=== PATIENT | male | born 1955 | race Caucasian/White ===

== ENCOUNTER 2018-05-23 17:54 | Inpatient (IN) | payer MEDICAID ==
[2018-05-23] MEDS ORDERED: Ondansetron PF 4 MG/2 ML Vial ONE (18:31)
[2018-05-23 18:33] LABS: #Basophils 0.1 thou/uL (0.0-0.2); #Eosinphils 0.1 thou/uL (0.0-0.7); #Lymphocytes 1.7 thou/uL (1.20-3.40); #Neutrophils 10.8 thou/uL (1.40-6.50); %Basophils 0.5 % (0.0-1.0); %Eosinophils 0.9 % (0.0-10.0); %Lymphocytes 12.6 % (21.0-51.0); %Monocytes 7.1 % (0.0-10.0); %Neutrophils 78.9 % (42.0-75.0); Hemoglobin 8.9 g/dL (14.0-18.0); Mean Corpuscular HGB CONC 30.7 g/dL (32.0-36.0); Mean Corpuscular Hemoglobin 24.5 pg (27.0-31.0); Mean Platelet Volume 6.2 fL (7.4-10.4); Platelet Count 827 thou/uL (130-400); RBC Distribution Width 14.9 % (11.5-14.5); Red Blood Cell (RBC) Count 3.64 mill/uL (4.70-6.10); White Blood Cell (WBC) Count 13.7 thou/uL (4.8-10.8)
[2018-05-23] MEDS ORDERED: Morphine 10 MG/ML VIAL ONE (18:41)
[2018-05-23 18:53] LABS: ALT (SGPT) Less than 7 U/L (8-55); AST (SGOT) 16 U/L (5-34); Alkaline Phosphatase 114 U/L (40-150); Anion Gap 10 mmol/L (10-20); BUN (Urea Nitrogen) 15 mg/dL (8.4-25.7); Bilirubin, Total Less than 0.2 mg/dL (0.2-1.2); Calc. Creatinine Clearance 0 mL/min (70-130); Calcium 8.6 mg/dL (7.8-10.44); Carbon Dioxide 31 mmol/L (23-31); Chloride 101 mmol/L (98-107); Estimated GFR-MDRD Greater than 90; Globulin 3.6 g/dL (2.4-3.5); Glucose 107 mg/dL (80-115); Potassium 3.8 mmol/L (3.5-5.1); Protein, Total 6.6 g/dL (5.8-8.1); Sodium 138 mmol/L (136-145)
--- NOTE | 2018-05-23 19:37 | RAD ---
CHEST TWO VIEWS: History: Chest pain, dyspnea. FINDINGS: No comparison. Cardiac silhouette and pulmonary vasculature are unremarkable. Opacification of the left lower lobe w ith hyperexpansion of the left upper lobe. No air bronchograms are apparent. Right lung is well infla lj. No evidence of pneumothorax. IMPRESSION: Opacification of the left inferior hemithorax has the appearance of atelectasis of the left lower lob e. POS: [facility]
--- NOTE | 2018-05-23 20:09 | PDOC.FPRHP ---
- History of Present Illness Chief Complaint: Pain History of Present Illness: Mr. Padilla is a 62 yo M with known metastatic lung cancer (liver mets per patient) who presents for worsening back pain. His pain is primarily on his L side and feels like a knife is stabbing him. He is on oxycodone and norco - taking norco 3-4 times a day which sometimes helps. Sometimes it feels like a fake medication. He is very functional when his pain is controlled. Breathing treatments and pain control help him the most. He is now living at the [facility] here in town. He states they did a biopsy and scans all over his body for his diagnosis. He does not believe chemo and radiation will help him. The diagnosis was made in January. He was told he could get chemotherapy but he cannot decide because of the pain he is in. His brother lives in [place], Ro[place] Padilla, and would be his surrogate decision maker. Master Ocean Dilip Griggs MD ( Radiation Oncology) at [facility] [phone]. Smokes 3 cigarettes/ day. Endorses some constipation because of pain medications. ED Course: Morphine 4mg, Morphine 2mg, 1L NS, Zofran - Allergies/Adverse Reactions Allergies Allergy/AdvReac Type Severity Reaction Status Date / Time No Known Allergies Allergy Verified 05/23/18 22:17 - Home Medications Medication Instructions Recorded Confirmed Type Oxycodone HCl/Acetaminophen 1 - 2 tablet PO Q6HR PRN 05/23/18 05/23/18 History [oxyCODONE HCl/Acetaminophen] - History PMHx: Metastatic lung cancer PSHx: L 4th finger repair after injury FHx: Dad- heart disease Social: 3 cigarettes/day, prior to that 1 ppd. Quit drinking 10 years ago. Remote hx cocaine, marijuana. after 17 years. 2 girls, 1 boy. - Review of Systems General: reports: weight/appetite/sleep changes (45 lb weight loss since January ). denies: fever/chills Eyes: denies: eye pain, vision changes ENT: denies: nasal congestion, rhinorrhea Respiratory: denies: cough, congestion Cardiovascular: denies: chest pain, palpitation Gastrointestinal: denies: nausea, vomiting Genitourinary: reports: other (denies hematuria). denies: dysuria Skin: denies: rashes, lesions Musculoskeletal: reports: pain, arthritis/arthralgias Neurological: denies: syncope, weakness Psychological: reports: depression (lonelines, sadness, hopelessness because of pain) - Vital signs BP: 145/68 HR: 94 RR: 26 Tmax: 98.1 Pox: 97% on RA Wt: 58.97kg - Physical Exam Constitutional: NAD, awake, alert and oriented, other (cachectic) HEENT: normocephalic and atraumatic, conjunctiva clear, grossly normal hearing, MMM, oropharynx clear Neck: supple, trachea midline Heart: RRR Lungs: CTAB, no wheezing -Lungs: decreased breath sounds in left lower lobe Abdomen: soft, non-tender, bowel sounds present Musculoskeletal: normal structure, ROM grossly normal Neurological: no focal deficit Skin: no rash/lesions, capillary refill <2 seconds Psychiatric: good judgment and insight, intact recent and remote memory, other ( tearful) FMR H&P: Results - Labs Result Diagrams: 05/23/18 18:17 05/24/18 05:52 Lab results: WBC 13.7 thou/uL (4.8-10.8) H 05/23/18 18:17 Hgb 8.9 g/dL (14.0-18.0) L 05/23/18 18:17 Hct 29.1 % (42.0-52.0) L 05/23/18 18:17 MCV 80.0 fL (78.0-98.0) 05/23/18 18:17 Plt Count 827 thou/uL (130-400) H 05/23/18 18:17 Neutrophils % 78.9 % (42.0-75.0) H 05/23/18 18:17 Sodium 138 mmol/L (136-145) 05/23/18 18:17 Potassium 3.8 mmol/L (3.5-5.1) 05/23/18 18:17 Chloride 101 mmol/L (98-107) 05/23/18 18:17 Carbon Dioxide 31 mmol/L (23-31) 05/23/18 18:17 BUN 15 mg/dL (8.4-25.7) 05/23/18 18:17 Creatinine 0.64 mg/dL (0.7-1.3) L 05/23/18 18:17 Glucose 107 mg/dL (80-115) 05/23/18 18:17 Calcium 8.6 mg/dL (7.8-10.44) 05/23/18 18:17 Total Bilirubin Less than 0.2 mg/dL (0.2-1.2) L 05/23/18 18:17 AST 16 U/L (5-34) 05/23/18 18:17 ALT Less than 7 U/L (8-55) L 05/23/18 18:17 Alkaline Phosphatase 114 U/L (40-150) 05/23/18 18:17 Serum Total Protein 6.6 g/dL (5.8-8.1) 05/23/18 18:17 Albumin 3.0 g/dL (3.4-4.8) L 05/23/18 18:17 - Radiology Interpretation Chest x-ray Status: report reviewed by me Additional comment: Opacification of left inferior hemithorax has appearance of atelectasis of left lower lobe FMR H&P: A/P - Problem List (1) Intractable pain Current Visit: Yes Status: Acute Code(s): R52 - PAIN, UNSPECIFIED (2) Metastatic lung cancer (metastasis from lung to other site) Current Visit: Yes Status: Acute Code(s): C34.90 - MALIGNANT NEOPLASM OF UNSP PART OF UNSP BRONCHUS OR LUNG - Plan 62yo male with pmh of lung cancer admitted for intractable pain Intractable Pain - 2/2 lung cancer, ran out of home [place] - Given Morphine in ED will minimal relief - Started Percocet with Morphine for breakthrough pain - Started Senna and Colace for Bowel regimen - Consulted Palliative care Metastatic Lung Cancer - Requesting records from prev providers - Consulted Palliative care Homeless - Consulted Tobacco Abuse - Smokes 3 cig per day Code Status: FULL DVT ppx: Lovenox FMR H&P: Upper Level - Pertinent history 62 yo M with known metastatic lung cancer her with pain that acutely worsened after he ran out of home Percoset this morning. He has been having trouble consistently getting medications after leaving homeless halfway in [place] and moving here where he is staying at the [facility]. He has been having excruciating pain on his L side/flank of which he gets limited relief from [place]. He is very tearful when asked about his pain/prognosis and experience with physicians at other facilities. - Pertinent findings VSS Gen: awake, alert, tearful, cachectic HEENT: atraumatic, normocephalic CV: RRR, no murmur RESP: diminished air entry at BL bases ABD: soft, nontender, nondistended SKIN: tattoos on back EXT: clubbing in all nails NEURO: moving all extremities, no facial droop - Plan Date/Time: 05/23/182007 62 yo M with intractable pain 2/2 known metastatic lung malignancy 1. Intractable pain 2/2 malignancy - Inadequate pain control with morphine in ED - Start long acting Percocet and morphine for breakthrough - Palliative consult in a.m. - Patient at this time is not interested in chemo and wants to live life out in peace, however, may consider consulting oncology if he plans to stay here and wants to explore possible treatment options - Bowel regimen 2. Lung CA - Palliative +/- oncology as above I, Megan Flores MD, PGY-3, have evaluated this patient and agree with findings/ plan as outlined by chemist internship resident. Pertinent changes/additions are listed here. Addendum - Attending - Attending Attestation Date/Time: 05/24/18 0644 I personally evaluated the patient and discussed the management with Dr. Andrew I agree with the History, Examination, Assessment and Plan documented above with any addition or exceptions noted below. Assume This patient with Small Cell Lung Cancer based on aggressive history of disease and liver metastasis need record review patient poor historian questionable PET scan etc. Patient concern will pain control recommend palliative care.
[2018-05-23] MEDS ORDERED: Morphine 4 MG/ML VIAL ONE (20:15)
[2018-05-23] MEDS ORDERED: Morphine 4 MG/ML VIAL SLOW IVP PRN ×2 (22:08→22:09)
[2018-05-23 22:18] VITALS: BMI 18.1
[2018-05-23] MEDS ORDERED: Ketorolac Tromethamine 30 MG/ML VIAL IVP SCH (23:15)
--- NOTE | 2018-05-23 23:55 | PDOC.EVN ---
Event Note - Event Note Event Note: 62 yo male diagnosed with "metastatic Lung cancer" in [place], [place] Jan 2018 patient with admission for intractable pain. Patient living at the [facility]. Patient will be considered for Palliative/Hospice care after formal review Past Medical records for further information of type/stage lung cancer CXR with atelectasis LLL. Patient relates work up with imaging brain and abdomen. Pain to left lower rib cage and flank. Patient poor historian not able to give any specific details but has provided Oncologist name Dr Dilip Griggs in [place]. will offer pain management and bowel maintanence with opiods. Review [employer] reveal several ER visit for norco short term RX and longer RX per Oncologist in [place]
[2018-05-24] MEDS ORDERED: Ondansetron ODT 4 MG TAB PO PRN (00:51)
[2018-05-24] MEDS ORDERED: Morphine 4 MG/ML VIAL SLOW IVP PRN ×4 (01:10→11:11)
[2018-05-24] MEDS: oxyCODONE/Acetaminophen 5 mg/325 mg Tablet PO SCH ×4 (01:49→18:23)
--- NOTE | 2018-05-24 05:45 | PDOC.FM ---
- Subjective Subjective: NAEO. Patient reports that his pain is much better at a 3/10 this morning. Says he feels it in his right side. Says he just did not sleep well last night. Denies any N/V or SOB, except when he talks a lot. Denies any BM yet. - Objective MAR Reviewed: Yes Vital Signs & Weight: Vital Signs (12 hours) Temp Pulse Resp BP Pulse Ox 05/24/18 03:42 98.2 F 85 16 148/74 H 95 05/23/18 23:15 98.3 F 82 24 H 160/76 H 95 05/23/18 21:57 97.6 F 91 28 H 170/80 H 97 Weight Weight 63.911 kg Result Diagrams: 05/23/18 18:17 05/24/18 05:52 Phys Exam - Physical Examination Constitutional: NAD HEENT: moist MMs Neck: supple, full ROM Respiratory: no wheezing, no rales, no rhonchi, clear to auscultation bilateral Cardiovascular: RRR, no significant murmur Gastrointestinal: positive bowel sounds Musculoskeletal: no edema significant digital clubbing in B/L hands Neurological: non-focal, moves all 4 limbs Psychiatric: normal affect, A&O x 3 Skin: no rash, normal turgor, cap refill <2 seconds Dx/Plan (1) Intractable pain Code(s): R52 - PAIN, UNSPECIFIED Status: Acute (2) Metastatic lung cancer (metastasis from lung to other site) Code(s): C34.90 - MALIGNANT NEOPLASM OF UNSP PART OF UNSP BRONCHUS OR LUNG Status: Acute - Plan Plan: 62YOM with pmh of metastatic lung cancer admitted for intractable pain 2/2 to his cancer. Intractable Pain - 2/2 lung cancer, ran out of home [place] - Given Morphine in ED with minimal relief - Will continue Percocet GM Q8H with Morphine 4mg IV Q4H & 2mg Q2H PRN for breakthrough pain - Will continue Senna and Colace for Bowel regimen - Consulted Palliative care Metastatic Lung Cancer - Requesting records from prev providers - Consulted Palliative care as patient is full code but does not desire any CA treatment as he does not want to suffer for the remainder of his life. Homeless - Aware, consulted CM Tobacco Abuse - Smokes 3 cig per day - Will encourage cessation Code Status: FULL DVT ppx: Lovenox Addendum - Attending - Attending Attestation Date/Time: 05/24/18 6709 I personally evaluated the patient and discussed the management with Dr. Gonzalez I agree with the History, Examination, Assessment and Plan documented above with any addition or exceptions noted below- Ptainet states that pain better controlled with percocet; still needed some prn morphine. Afebrile VSS. A/P: 1) Metastatic lung cancer with pain crisis - continue current meds. May need to increase dose of percocet or change to long acting opioid. Awaiting records from [facility]. Palliative consult obtained and helping to arrange hospice care. Discussed code status and patient desires no intervention in the event of a code situation. Status changed per patient request.
[2018-05-24 06:37] LABS: Anion Gap 14 mmol/L (10-20); BUN (Urea Nitrogen) 11 mg/dL (8.4-25.7); Calc. Creatinine Clearance 113 mL/min (70-130); Calcium 8.5 mg/dL (7.8-10.44); Carbon Dioxide 28 mmol/L (23-31); Chloride 102 mmol/L (98-107); Estimated GFR-MDRD Greater than 90; Glucose 84 mg/dL (80-115); Potassium 4.6 mmol/L (3.5-5.1); Sodium 139 mmol/L (136-145)
[2018-05-24] MEDS: Docusate 100 MG CAP PO SCH ×2 (08:35→08:45)
[2018-05-24] MEDS: Senokot S 8.6-50 MG TAB PO SCH ×2 (08:35→20:37)
[2018-05-24] MEDS: Enoxaparin Sodium 40 MG/0.4 ML SYRINGE SC SCH (08:36)
[2018-05-24] MEDS ORDERED: Morphine 4 MG/ML VIAL SLOW IVP SCH (12:00)
[2018-05-24] MEDS ORDERED: HYDROcodone/Acetaminophen 5/325 mg Tablet PO PRN (16:12)
[2018-05-24] MEDS ORDERED: Ibuprofen 800 MG TAB PO PRN (16:13)
[2018-05-24] MEDS: Ketorolac Tromethamine 30 MG/ML VIAL IVP PRN (22:45)
[2018-05-24] MEDS ORDERED: Ketorolac Tromethamine 30 MG/ML VIAL IVP SCH (23:59)
[2018-05-25] MEDS: oxyCODONE/Acetaminophen 5 mg/325 mg Tablet PO SCH ×2 (00:09→05:46)
--- NOTE | 2018-05-25 06:01 | PDOC.FM ---
- Subjective Subjective: Patient required adjustments in his pain regimen overnight. Reports that his pain is 10/10 this am. Says his pain is preventing him from taking deep breaths. Denies any fever/chills, N/V, or diarrhea. He does endorse constipation & abdominal tightness. - Objective MAR Reviewed: Yes Vital Signs & Weight: Vital Signs (12 hours) Temp Pulse Resp BP BP Pulse Ox 05/25/18 04:12 98.9 F 82 16 160/75 H 96 05/24/18 19:00 98.9 F 86 16 147/66 H 91 L Weight Admit Weight 63.911 kg Weight 63.911 kg I&O: 05/23/18 05/24/18 05/25/18 06:59 06:59 06:59 Intake Total 700 840 Balance 700 840 Result Diagrams: 05/23/18 18:17 05/24/18 05:52 Phys Exam - Physical Examination distress 2/2 pain HEENT: moist MMs Neck: supple, full ROM Respiratory: no wheezing, no rales, no rhonchi, clear to auscultation bilateral Cardiovascular: RRR, no significant murmur Gastrointestinal: no distention, positive bowel sounds Neurological: non-focal, moves all 4 limbs Psychiatric: normal affect, A&O x 3 Skin: no rash, normal turgor Dx/Plan (1) Intractable pain Code(s): R52 - PAIN, UNSPECIFIED Status: Acute (2) Metastatic lung cancer (metastasis from lung to other site) Code(s): C34.90 - MALIGNANT NEOPLASM OF UNSP PART OF UNSP BRONCHUS OR LUNG Status: Acute - Plan Plan: 62YOM with pmh of metastatic lung cancer admitted for intractable pain 2/2 to his cancer. Intractable Pain - 2/2 metastatic lung cancer. - Will consider switching to a longer acting narcotic such as MS contin today as short-acting meds are not adequately controlling his pain. - Will continue Senokot S and add miralax for bowel regimen. - Palliative care on board. Metastatic Lung Cancer - Requesting records from prev providers. - Consulted Palliative care and patient is now DNAR. OOH DNR signed yesterday with Hospice. - Patient has been approved for Hospice care in the [facility] and referrals were placed by CM yesterday for NH's in that area. Placement pending. HTN - Patient not on any antihypertensives at home. Will consider initiating an antihypertensive if BP remain consistently elevated. May just be elevated 2/2 pain. Homeless - Aware, consulted CM. Patient is pending placement. Tobacco Abuse - Smokes 3 cig per day. - Will encourage cessation. Code Status: DNAR DVT ppx: Lovenox GI PPx: pantoprazole Addendum - Attending - Attending Attestation Date/Time: 05/25/18 9216 I personally evaluated the patient and discussed the management with Dr. Gonzalez I agree with the History, Examination, Assessment and Plan documented above with any addition or exceptions noted below- Patient c/o pain. Has good relief with percocet but does not last long enough. Afebrile VSS A/P: 1) Lung cancer metastatic- still awaiting records from [facility]; will change to long acting opiate with meds for breakthrough. Awaiting NH placement with hospice.
[2018-05-25] MEDS: Senokot S 8.6-50 MG TAB PO SCH ×2 (08:02→20:33)
[2018-05-25] MEDS: Ketorolac Tromethamine 30 MG/ML VIAL IVP PRN (08:03)
[2018-05-25] MEDS: Enoxaparin Sodium 40 MG/0.4 ML SYRINGE SC SCH (08:04)
[2018-05-25] MEDS ORDERED: Ibuprofen 800 MG TAB PO SCH (08:30)
[2018-05-25] MEDS: Polyethylene Glycol 3350 17 GM Packet PO SCH (09:39)
[2018-05-25] MEDS: Nicotine 14 MG PATCH TD SCH (12:14)
[2018-05-25] MEDS ORDERED: oxyCODONE ER 20 MG TAB PO SCH ×2 (12:15→21:00)
[2018-05-25] MEDS: oxyCODONE/Acetaminophen 5 mg/325 mg Tablet PO PRN ×2 (13:52→22:54)
[2018-05-25] MEDS: Gabapentin 300 MG CAP PO SCH ×2 (13:52→20:34)
[2018-05-25] MEDS ORDERED: Ketorolac Tromethamine 30 MG/ML VIAL IVP PRN (15:00)
[2018-05-25] MEDS: oxyCODONE ER 20 MG TAB PO SCH (20:33)
[2018-05-25] MEDS: Melatonin 3 MG TAB PO PRN (20:35)
[2018-05-25] MEDS ORDERED: Morphine ER 30 MG TAB PO SCH (21:00)
[2018-05-26] MEDS: oxyCODONE/Acetaminophen 5 mg/325 mg Tablet PO PRN ×4 (05:03→22:30)
--- NOTE | 2018-05-26 05:54 | PDOC.FM ---
- Subjective Subjective: NAEO. Patient reports that his pain is much better this AM. Says it is much improved after starting the longer acting opioid yesterday but did have increased pain overnight. Denies any chest pain, N/V, or diarrhea. Says he has not yet had a BM. Endorses some SOB as well or says he is not able to take really deep breaths 2/2 pain. - Objective MAR Reviewed: Yes Vital Signs & Weight: Vital Signs (12 hours) Temp Pulse Resp BP BP Pulse Ox 05/26/18 04:00 98.4 F 90 18 124/59 L 93 L 05/25/18 23:54 98.8 F 107 H 22 H 124/58 L 92 L 05/25/18 20:08 98.0 F 84 24 H 143/69 H 91 L 05/25/18 18:15 97.5 F L 86 14 138/71 90 L Weight Admit Weight 63.911 kg Weight 63.911 kg I&O: 05/24/18 05/25/18 05/26/18 06:59 06:59 06:59 Intake Total 700 1190 1560 Balance 700 1190 1560 Result Diagrams: 05/23/18 18:17 05/24/18 05:52 Phys Exam - Physical Examination Constitutional: NAD HEENT: moist MMs, sclera anicteric Neck: supple, full ROM Respiratory: no wheezing, no rales, no rhonchi, clear to auscultation bilateral poor air movement throughout Cardiovascular: RRR, no significant murmur Gastrointestinal: no distention, positive bowel sounds Neurological: non-focal, moves all 4 limbs Psychiatric: normal affect, A&O x 3 Skin: no rash, normal turgor Dx/Plan (1) Intractable pain Code(s): R52 - PAIN, UNSPECIFIED Status: Acute (2) Metastatic lung cancer (metastasis from lung to other site) Code(s): C34.90 - MALIGNANT NEOPLASM OF UNSP PART OF UNSP BRONCHUS OR LUNG Status: Acute (3) Tobacco abuse Code(s): Z72.0 - TOBACCO USE Status: Acute - Plan Plan: 62YOM with a pmh of metastatic lung cancer admitted for intractable pain 2/2 to his cancer. Intractable Pain - 2/2 metastatic lung cancer. - Will consider increasing Oxycontin dosing by ~10mg today since patient required 3 doses of percocet for breakthrough pain since starting the 20 BID dose of oxycontin yesterday. Will continue the GM gabapentin and PRN ibuprofen as well for pain control. Will continue Percocet PRN as well while continuing to adjust oxycontin dose for adequate pain control. - Will continue Senokot S and try a dose of lactulose this morning to induce a BM. If BM with lactulose with resume miralax and senokot combo tomorrow. - Palliative care on board. Metastatic Lung Cancer - Requesting records from prev providers. - Consulted Palliative care and patient is now DNAR. OOH DNR signed with Hospice. - Patient has been approved for Hospice care in the [facility] and has been medically accepted by [facility]. Just pending financial approval now. HTN - Patient not on any antihypertensives at home. BP improved since starting longer acting opioid for pain control. Will continue to monitor. Homeless - Aware, consulted CM. Patient is pending placement. Tobacco Abuse - Smokes 3 cig per day. - Will encourage cessation. - Nicotine patch ordered per patient's request. Code Status: DNAR DVT ppx: Lovenox GI PPx: pantoprazole Addendum - Attending - Attending Attestation Date/Time: 05/27/18 3304 I personally evaluated the patient and discussed the management with Dr. Gonzalez on 05/26/2018 I agree with the History, Examination, Assessment and Plan documented above with any addition or exceptions noted below - Patient complaining of pain but better than yesterday. Has been walking in halls some. Afebrile VSS. A/P: 1) Metastatic lung cancer- pain meds adjusted. May increase Oxycontin tomorrow depending on prn use through today. Awaiting placment in NH with hospice.
[2018-05-26] MEDS: Senokot S 8.6-50 MG TAB PO SCH ×2 (09:08→20:29)
[2018-05-26] MEDS: Gabapentin 300 MG CAP PO SCH ×3 (09:08→20:29)
[2018-05-26] MEDS: Enoxaparin Sodium 40 MG/0.4 ML SYRINGE SC SCH (09:09)
[2018-05-26] MEDS: oxyCODONE ER 20 MG TAB PO SCH ×2 (09:09→20:30)
[2018-05-26] MEDS: Nicotine 14 MG PATCH TD SCH (12:17)
[2018-05-26] MEDS: Ibuprofen 800 MG TAB PO PRN (14:18)
[2018-05-26] MEDS ORDERED: Bisacodyl 10 MG SUPP PR PRN (18:51)
[2018-05-27] MEDS: oxyCODONE/Acetaminophen 5 mg/325 mg Tablet PO PRN ×4 (02:33→19:36)
--- NOTE | 2018-05-27 05:54 | PDOC.FM ---
- Subjective Subjective: Patient states he feels much better this AM. Endorses persistent SOB and constipation. Denies any fever/chills, N/V, or cough/wheezing. - Objective MAR Reviewed: Yes Vital Signs & Weight: Vital Signs (12 hours) Temp Pulse Resp BP Pulse Ox 05/26/18 19:23 97.9 F 86 20 119/63 93 L Weight Admit Weight 63.911 kg Weight 63.911 kg I&O: 05/25/18 05/26/18 05/27/18 06:59 06:59 06:59 Intake Total 1190 1560 1720 Balance 1190 1560 1720 Result Diagrams: 05/23/18 18:17 05/24/18 05:52 Phys Exam - Physical Examination Constitutional: NAD HEENT: moist MMs, sclera anicteric Neck: supple, full ROM Respiratory: no rales, no rhonchi Cardiovascular: RRR, no significant murmur Gastrointestinal: no distention, positive bowel sounds Neurological: non-focal, moves all 4 limbs Psychiatric: normal affect, A&O x 3 Skin: no rash, normal turgor Dx/Plan (1) Intractable pain Code(s): R52 - PAIN, UNSPECIFIED Status: Acute (2) Metastatic lung cancer (metastasis from lung to other site) Code(s): C34.90 - MALIGNANT NEOPLASM OF UNSP PART OF UNSP BRONCHUS OR LUNG Status: Acute (3) Tobacco abuse Code(s): Z72.0 - TOBACCO USE Status: Acute - Plan Plan: 62YOM with a pmh of metastatic lung cancer admitted for intractable pain 2/2 to his cancer. Intractable Pain - 2/2 metastatic lung cancer. - Will increase Oxycontin dosing by ~10mg today since patient again required multiple doses of percocet for breakthrough pain over the last 24 hours. Will continue the GM gabapentin and PRN ibuprofen as well for pain control. Will continue Percocet PRN Q4H for breakthrough pain. - Palliative care on board. Metastatic Lung Cancer - Requesting records from prev providers. - Consulted Palliative care and patient is now DNAR. OOH DNR signed with Hospice. - Patient has been approved for Hospice care in the [facility] and has been medically accepted by [facility]. Just pending financial approval now. Constipation - Will continue Senokot S and miralax and give another dose of lactulose this morning to induce a BM. Will also add a OK medication. HTN - Patient not on any antihypertensives at home. BP improved since starting longer acting opioid for pain control. Will continue to monitor. Homeless - Aware, consulted CM. Patient is pending placement. Tobacco Abuse - Smokes 3 cig per day. - Will encourage cessation. - Nicotine patch ordered per patient's request. Code Status: DNAR DVT ppx: Lovenox GI PPx: pantoprazole Addendum - Attending - Attending Attestation Date/Time: 05/27/18 1022 I personally evaluated the patient and discussed the management with Dr. Gonzalez I agree with the History, Examination, Assessment and Plan documented above with any addition or exceptions noted below- Patient reports pain under better control. Afebrile VSS. A/P: 1) Metastatic lung cancer - will increase oxycontin to 30 mg q12 hours based on prn needed medication. Arranging NH placement.
[2018-05-27] MEDS: oxyCODONE ER 20 MG TAB PO SCH ×2 (06:07→18:17)
[2018-05-27] MEDS ORDERED: Bisacodyl 10 MG SUPP PR SCH (07:45)
[2018-05-27] MEDS: Senokot S 8.6-50 MG TAB PO SCH ×2 (09:11→19:38)
[2018-05-27] MEDS: Enoxaparin Sodium 40 MG/0.4 ML SYRINGE SC SCH (09:12)
[2018-05-27] MEDS: Gabapentin 300 MG CAP PO SCH ×3 (09:12→19:37)
[2018-05-27] MEDS: Polyethylene Glycol 3350 17 GM Packet PO SCH (09:14)
[2018-05-27] MEDS: Nicotine 14 MG PATCH TD SCH (11:55)
[2018-05-28] MEDS: oxyCODONE/Acetaminophen 5 mg/325 mg Tablet PO PRN ×5 (01:02→21:31)
[2018-05-28] MEDS: oxyCODONE ER 20 MG TAB PO SCH ×2 (05:11→17:52)
--- NOTE | 2018-05-28 05:58 | PDOC.FM ---
- Subjective Subjective: NAEO. Patient reports 30/10 pain on exam. Had 1 bowel movement yesterday. Denies any fever/chills, cough, or chest pain, just persistent L-sided abdominal pain. - Objective MAR Reviewed: Yes Vital Signs & Weight: Vital Signs (12 hours) Temp Pulse Resp BP BP Pulse Ox 05/28/18 04:12 99.0 F 109 H 18 122/57 L 96 05/28/18 00:50 94 L 05/28/18 00:48 85 20 94 L 05/28/18 00:42 99.2 F 110 H 18 111/55 L 93 L 05/27/18 20:00 92 L 05/27/18 19:23 98.6 F 102 H 20 125/62 92 L 05/27/18 19:10 95 16 96 Weight Admit Weight 63.911 kg Weight 63.911 kg I&O: 05/26/18 05/27/18 05/28/18 06:59 06:59 06:59 Intake Total 1560 1720 660 Balance 1560 1720 660 Result Diagrams: 05/23/18 18:17 05/24/18 05:52 Phys Exam - Physical Examination Constitutional: NAD HEENT: moist MMs, sclera anicteric Neck: supple, full ROM Respiratory: no wheezing, no rales, no rhonchi, clear to auscultation bilateral Cardiovascular: RRR, no significant murmur Gastrointestinal: no distention, positive bowel sounds abdomen is non-tender to palpation in left upper & lower quadrants despite patient reporting TTP in this side; TTP in right side on exam Musculoskeletal: no edema Neurological: non-focal, moves all 4 limbs Psychiatric: normal affect, A&O x 3 Skin: no rash, normal turgor Dx/Plan (1) Intractable pain Code(s): R52 - PAIN, UNSPECIFIED Status: Acute (2) Metastatic lung cancer (metastasis from lung to other site) Code(s): C34.90 - MALIGNANT NEOPLASM OF UNSP PART OF UNSP BRONCHUS OR LUNG Status: Acute (3) Tobacco abuse Code(s): Z72.0 - TOBACCO USE Status: Acute - Plan Plan: 62YOM with a pmh of metastatic lung cancer admitted for intractable pain 2/2 to his cancer. Intractable Pain - 2/2 metastatic lung cancer. - Will keep Oxycontin dosing at 30mg BID due to suspicion that pain is not as severe at patient is reporting. Will continue the [facility] gabapentin and PRN ibuprofen as well for pain control. Will continue Percocet PRN Q4H for breakthrough pain. - Palliative care on board. Metastatic Lung Cancer - Diagnosis confirmed via ER reports from [place] with a CTA of chest describing a LLL mass with liver mets. - Consulted Palliative care and patient is DNAR. OOH DNR signed with Hospice & in chart. - Patient declined his spot at [facility] in [place] as he prefers to go to a facility where he can come and go as he pleases and be allowed to smoke. CM spoke with a consumer sales representative at [facility] yesterday and confirmed patient would be allowed to do those things at this facility. Referral placed. Awaiting acceptance/approval. Constipation, improved - Patient had 1 BM yesterday. Will continue Senokot S and miralax QD while patient remains on opioids for pain control. HTN - Patient not on any antihypertensives at home. BP improved since achieving better pain control. Will continue to monitor. Homeless - Aware, consulted CM. Patient is pending placement. Tobacco Abuse - Smokes 3 cig per day. - Will encourage cessation. - Nicotine patch ordered per patient's request. Suspected COPD - Will consider increasing Duonebs interval to Q6H as patient does not medically require them as he is not wheezing. Just believes they are helping him. Code Status: DNAR DVT ppx: Lovenox GI PPx: pantoprazole Addendum - Attending - Attending Attestation Date/Time: 05/28/18 [id number] I personally evaluated the patient and discussed the management with Dr. Gonzalez I agree with the History, Examination, Assessment and Plan documented above with any addition or exceptions noted below- Patient c/o pain states that he just got some medication and just wants to rest. Afebrile VSS. A/P: 1) Metastatic lung cancer- continue current dose of medications. Working on NH placement.
[2018-05-28] MEDS: Senokot S 8.6-50 MG TAB PO SCH ×2 (09:12→20:22)
[2018-05-28] MEDS: Enoxaparin Sodium 40 MG/0.4 ML SYRINGE SC SCH (09:12)
[2018-05-28] MEDS: Gabapentin 300 MG CAP PO SCH ×3 (09:12→20:22)
[2018-05-28] MEDS: Polyethylene Glycol 3350 17 GM Packet PO SCH (09:13)
[2018-05-28] MEDS ORDERED: Morphine 2 MG/ML SYRINGE SLOW IVP SCH (09:30)
[2018-05-28] MEDS: Nicotine 14 MG PATCH TD SCH (13:16)
[2018-05-28] MEDS: Ibuprofen 800 MG TAB PO PRN (20:22)
[2018-05-29] MEDS: oxyCODONE/Acetaminophen 5 mg/325 mg Tablet PO PRN ×5 (01:46→21:37)
--- NOTE | 2018-05-29 05:59 | PDOC.FM ---
- Subjective Subjective: NAEO. Patient reports that his pain is well controlled. Denies any SOB, chest pain or cough. Had another BM yesterday and has been getting up and walking around more. - Objective MAR Reviewed: Yes Vital Signs & Weight: Vital Signs (12 hours) Temp Pulse Resp BP Pulse Ox 05/29/18 00:54 16 05/28/18 19:34 98.4 F 100 20 142/65 H 95 05/28/18 19:32 86 16 90 L Weight Admit Weight 63.911 kg Weight 63.911 kg I&O: 05/27/18 05/28/18 05/29/18 06:59 06:59 06:59 Intake Total 1720 1140 Balance 1720 1140 Result Diagrams: 05/23/18 18:17 05/24/18 05:52 Phys Exam - Physical Examination Constitutional: NAD HEENT: moist MMs, sclera anicteric Neck: supple, full ROM Respiratory: no wheezing, no rales, no rhonchi, clear to auscultation bilateral Cardiovascular: RRR, no significant murmur Gastrointestinal: no distention, positive bowel sounds TTP in epigastric area on exam Neurological: non-focal, moves all 4 limbs Psychiatric: normal affect, A&O x 3 Skin: no rash, normal turgor Dx/Plan (1) Intractable pain Code(s): R52 - PAIN, UNSPECIFIED Status: Acute (2) Metastatic lung cancer (metastasis from lung to other site) Code(s): C34.90 - MALIGNANT NEOPLASM OF UNSP PART OF UNSP BRONCHUS OR LUNG Status: Acute (3) Tobacco abuse Code(s): Z72.0 - TOBACCO USE Status: Acute - Plan Plan: 62YOM with a pmh of metastatic lung cancer admitted for intractable pain 2/2 to his cancer. Intractable Pain - 2/2 metastatic lung cancer. - Will consider increasing Oxycontin dosing to 40mg BID since patient has required Percocet Q6H consistently over last 2 days. Will continue the GM gabapentin and PRN ibuprofen as well for pain control. Will consider increasing Percocet PRN to Q6H for breakthrough pain w/ increase in oxycontin dosing. - Palliative care on board. Metastatic Lung Cancer - Diagnosis confirmed via ER reports from [place] with a CTA of chest describing a LLL mass with liver mets. - Consulted Palliative care and patient is DNAR. OOH DNR signed with Hospice & in chart. - Patient declined his spot at [facility] as he prefers to go to a facility where he can come and go as he pleases and be allowed to smoke. CM spoke with a tax representative at [facility] on 05/27 and confirmed patient would be allowed to do those things at this facility. Referral placed. Awaiting acceptance/approval. Per CM will occur no sooner than Thursday. Constipation, improved - Patient has had 2 BMs since admission. - Will continue Senokot S and miralax QD while patient remains on opioids for pain control. HTN - Patient not on any antihypertensives at home. BP improved since achieving better pain control. Will continue to monitor. Homeless - Aware, consulted CM. Patient is pending placement. Tobacco Abuse - Smokes 3 cig per day. - Will encourage cessation. - Nicotine patch ordered per patient's request. Suspected COPD - Will consider increasing Duonebs interval to Q8H as patient does not medically require them as he is not wheezing. Just believes they are helping him. Code Status: DNAR DVT ppx: Lovenox GI PPx: pantoprazole
[2018-05-29] MEDS: oxyCODONE ER 20 MG TAB PO SCH ×2 (06:08→18:30)
[2018-05-29] MEDS: Polyethylene Glycol 3350 17 GM Packet PO SCH (09:10)
[2018-05-29] MEDS: Enoxaparin Sodium 40 MG/0.4 ML SYRINGE SC SCH (09:10)
[2018-05-29] MEDS: Senokot S 8.6-50 MG TAB PO SCH ×2 (09:12→21:37)
[2018-05-29] MEDS: Gabapentin 300 MG CAP PO SCH ×3 (09:13→21:37)
[2018-05-29] MEDS ORDERED: oxyCODONE ER 20 MG TAB PO SCH ×2 (09:23→09:30)
[2018-05-29] MEDS: Nicotine 14 MG PATCH TD SCH (12:08)
[2018-05-30] MEDS: oxyCODONE/Acetaminophen 5 mg/325 mg Tablet PO PRN ×6 (01:24→23:55)
[2018-05-30] MEDS: Melatonin 3 MG TAB PO PRN (01:28)
[2018-05-30] MEDS: oxyCODONE ER 20 MG TAB PO SCH ×2 (05:38→18:31)
--- NOTE | 2018-05-30 07:07 | PDOC.FM ---
- Subjective Subjective: NAEO. Patient states his pain is decently controlled. Complaining of pain on exam but patient was resting comfortably in bed before I woke him up. Denies any N/V/D or constipation. Denies any wheezing or SOB as well. Says breathing treatments are helping some. - Objective MAR Reviewed: Yes Vital Signs & Weight: Vital Signs (12 hours) Temp Pulse Resp BP Pulse Ox 05/30/18 06:29 101 H 16 05/29/18 23:24 92 L 05/29/18 20:00 96 05/29/18 19:33 98.2 F 108 H 12 141/64 H 96 Weight Admit Weight 63.911 kg Weight 63.911 kg I&O: 05/29/18 05/30/18 05/31/18 06:59 06:59 06:59 Intake Total 1440 1260 Balance 1440 1260 Result Diagrams: 05/23/18 18:17 05/24/18 05:52 Phys Exam - Physical Examination Constitutional: NAD HEENT: moist MMs, sclera anicteric Neck: supple, full ROM Respiratory: no wheezing, no rales, no rhonchi, clear to auscultation bilateral Cardiovascular: RRR, no significant murmur Gastrointestinal: soft, no distention, positive bowel sounds TTP in right side Neurological: non-focal, moves all 4 limbs Psychiatric: normal affect, A&O x 3 Skin: no rash, normal turgor Dx/Plan (1) Intractable pain Code(s): R52 - PAIN, UNSPECIFIED Status: Acute (2) Metastatic lung cancer (metastasis from lung to other site) Code(s): C34.90 - MALIGNANT NEOPLASM OF UNSP PART OF UNSP BRONCHUS OR LUNG Status: Acute (3) Tobacco abuse Code(s): Z72.0 - TOBACCO USE Status: Acute - Plan Plan: 62YOM with a pmh of metastatic lung cancer admitted for intractable pain 2/2 to his cancer. Intractable Pain - 2/2 metastatic lung cancer. - Will continue Oxycontin dosing at 40mg BID and pastoral counselor patient to only take his breakthrough meds if he really needs them so we can see if the increased dose is actually helping. Will continue the GM gabapentin and PRN ibuprofen as well for pain control. Will increase Percocet PRN to Q6H for breakthrough pain w / increase in oxycontin dosing. - Palliative care on board. Metastatic Lung Cancer - Diagnosis confirmed via ER reports from [place] with a CTA of chest describing a LLL mass with liver mets. - Consulted Palliative care and patient is DNAR. OOH DNR signed with Hospice & in chart. - Patient declined his spot at [email or web address] in [place] as he prefers to go to a facility where he can come and go as he pleases and be allowed to smoke. CM spoke with a sales representative girls' apparel at [facility] on 05/27 and confirmed patient would be allowed to do those things at this facility. Referral placed. Awaiting acceptance/approval. Per CM will occur no sooner than Thursday. Constipation, improved - Patient has had 2 BMs since admission. - Will continue Senokot S and miralax QD while patient remains on opioids for pain control. HTN - Patient not on any antihypertensives at home. BP improved since achieving better pain control. Will continue to monitor. Homeless - Aware, consulted CM. Patient is pending placement. Tobacco Abuse - Smokes 3 cig per day. - Will encourage cessation. - Nicotine patch ordered per patient's request, will consider initiating wellbutrin instead if patient continues to go outside and smoke during hospital stay. Suspected COPD - Will consider increasing Duonebs interval to Q8H as patient does not medically require them as he is not wheezing. Just believes they are helping him. - Will order IS w/ RT as well. Code Status: DNAR DVT ppx: Lovenox GI PPx: pantoprazole
[2018-05-30 08:06] LABS: #Lymphocytes 1.9 thou/uL (1.20-3.40); #Monocytes 1.3 thou/uL (0.11-0.59); #Neutrophils 11.3 thou/uL (1.40-6.50); %Basophils 0.1 % (0.0-1.0); %Eosinophils 0.3 % (0.0-10.0); %Lymphocytes 13.1 % (21.0-51.0); %Monocytes 9.2 % (0.0-10.0); %Neutrophils 77.4 % (42.0-75.0); Hemoglobin 9.1 g/dL (14.0-18.0); Mean Corpuscular HGB CONC 30.5 g/dL (32.0-36.0); Mean Corpuscular Volume 78.7 fL (78.0-98.0); Mean Platelet Volume 6.5 fL (7.4-10.4); Platelet Count 808 thou/uL (130-400); White Blood Cell (WBC) Count 14.6 thou/uL (4.8-10.8)
[2018-05-30] MEDS: Senokot S 8.6-50 MG TAB PO SCH ×2 (09:21→19:51)
[2018-05-30] MEDS: Gabapentin 300 MG CAP PO SCH ×3 (09:22→19:51)
[2018-05-30] MEDS: Polyethylene Glycol 3350 17 GM Packet PO SCH (09:24)
[2018-05-30] MEDS: Enoxaparin Sodium 40 MG/0.4 ML SYRINGE SC SCH (09:24)
[2018-05-30] MEDS ORDERED: Ketorolac Tromethamine 30 MG/ML VIAL IVP SCH (10:30)
[2018-05-30] MEDS: Nicotine 14 MG PATCH TD SCH (12:39)
[2018-05-31] MEDS: oxyCODONE/Acetaminophen 5 mg/325 mg Tablet PO PRN ×3 (03:48→17:39)
--- NOTE | 2018-05-31 06:00 | PDOC.FM ---
- Subjective Subjective: Patient reports terrible pain and tearful on exam this AM. Irritated that "we are more concerned about his nicotine patch than his pain." States he can't even walk he has been in so much pain despite being seen walking outside multiple times per day to smoke by nursing staff. Denies any SOB, cough, or fever/chills on exam. Just reports left-sided pain. - Objective MAR Reviewed: Yes Vital Signs & Weight: Vital Signs (12 hours) Temp Pulse Resp BP BP Pulse Ox 05/31/18 00:05 106 H 97 05/30/18 23:51 114 H 134/69 05/30/18 21:07 115 H 128/69 05/30/18 20:00 93 L 05/30/18 19:41 98.1 F 120 H 20 141/84 H 93 L 05/30/18 19:10 93 L Weight Admit Weight 63.911 kg Weight 63.911 kg I&O: 05/29/18 05/30/18 05/31/18 06:59 06:59 06:59 Intake Total 1440 1260 910 Output Total 4 Balance 1440 1260 906 Result Diagrams: 05/30/18 07:59 05/24/18 05:52 Phys Exam - Physical Examination In distress 2/2 reported pain and tearful HEENT: moist MMs Neck: supple, full ROM Respiratory: no wheezing, no rales, no rhonchi, clear to auscultation bilateral Cardiovascular: RRR, no significant murmur Neurological: non-focal, moves all 4 limbs Psychiatric: A&O x 3 Deviation from normal: depressed affect Skin: no rash, normal turgor Dx/Plan (1) Intractable pain Code(s): R52 - PAIN, UNSPECIFIED Status: Acute (2) Metastatic lung cancer (metastasis from lung to other site) Code(s): C34.90 - MALIGNANT NEOPLASM OF UNSP PART OF UNSP BRONCHUS OR LUNG Status: Acute (3) Tobacco abuse Code(s): Z72.0 - TOBACCO USE Status: Acute - Plan Plan: 62YOM with a pmh of metastatic lung cancer admitted for intractable pain 2/2 to his cancer. Intractable Pain - 2/2 metastatic lung cancer. - Will increase Oxycontin dosing to 50mg BID and rehabilitation services counselor patient to only take his breakthrough meds if he really needs them so we can see if the increased dose is actually helping. Will continue the GM gabapentin and GM ibuprofen as well for pain control. Will increase Percocet PRN to Q6H for breakthrough pain w / increase in oxycontin dosing. - Palliative care on board. Metastatic Lung Cancer - Diagnosis confirmed via ER reports from [place] with a CTA of chest describing a LLL mass with liver mets. - Consulted Palliative care and patient is DNAR. OOH DNR signed with Hospice & in chart. - Patient declined his spot at [facility] in [place] as he prefers to go to a facility where he can come and go as he pleases and be allowed to smoke. CM spoke with a installation service representative at [facility] on 05/27 and confirmed patient would be allowed to do those things at this facility. Referral placed. Awaiting acceptance/approval. Per CM will occur no sooner than 06/02/18. Constipation, improved - Patient has had 2 BMs since admission. - Will continue Senokot S and miralax QD while patient remains on opioids for pain control. HTN - Patient not on any antihypertensives at home. BP improved since achieving better pain control. Will continue to monitor. Homeless - Aware, consulted CM. Patient is pending placement. Tobacco Abuse - Smokes 3 cig per day. - Patient not interested in cessation. - Nicotine patch d/c as patient continues to go outside and smoke during hospital stay. Suspected COPD - Will continue Duoneb interval to Q8H as patient does not medically require them as he is not wheezing. Just believes they are helping him. - IS w/ RT ordered as well; however, patient refused. Code Status: DNAR DVT ppx: Lovenox GI PPx: pantoprazole
[2018-05-31] MEDS: oxyCODONE ER 20 MG TAB PO SCH ×2 (06:08→19:15)
[2018-05-31] MEDS ORDERED: Morphine 2 MG/ML SYRINGE SLOW IVP SCH (07:15)
[2018-05-31] MEDS: Ibuprofen 800 MG TAB PO SCH ×3 (08:22→21:43)
[2018-05-31] MEDS: Enoxaparin Sodium 40 MG/0.4 ML SYRINGE SC SCH (08:26)
[2018-05-31] MEDS: Senokot S 8.6-50 MG TAB PO SCH ×2 (08:27→21:42)
[2018-05-31] MEDS: Gabapentin 300 MG CAP PO SCH ×3 (08:27→21:42)
[2018-05-31] MEDS: Polyethylene Glycol 3350 17 GM Packet PO SCH (08:28)
[2018-05-31 09:46] LABS: #Lymphocytes 1.4 thou/uL (1.20-3.40); #Monocytes 1.3 thou/uL (0.11-0.59); #Neutrophils 12.5 thou/uL (1.40-6.50); %Basophils 0.1 % (0.0-1.0); %Eosinophils 0.1 % (0.0-10.0); %Lymphocytes 9.2 % (21.0-51.0); %Monocytes 8.5 % (0.0-10.0); %Neutrophils 82.2 % (42.0-75.0); Hemoglobin 8.3 g/dL (14.0-18.0); Mean Corpuscular HGB CONC 30.6 g/dL (32.0-36.0); Mean Corpuscular Hemoglobin 23.9 pg (27.0-31.0); Mean Corpuscular Volume 77.9 fL (78.0-98.0); Mean Platelet Volume 6.3 fL (7.4-10.4); Platelet Count 756 thou/uL (130-400); RBC Distribution Width 14.9 % (11.5-14.5); Red Blood Cell (RBC) Count 3.48 mill/uL (4.70-6.10); White Blood Cell (WBC) Count 15.2 thou/uL (4.8-10.8)
--- NOTE | 2018-05-31 10:05 | PRG ---
DATE OF SERVICE: 05/29/2018 ADDENDUM: Please see note from Dr. Ratliff's, for which I agree. The patient was seen, evaluated, examined, and discussed with the residents by bedside. SUBJECTIVE: This is a 62-year-old gentleman with intractable pain from a lung cancer that he refuses to continue treatment for and so is here mostly for pain management, although looks like a higher dose of OxyContin twice daily and p.r.n. Percocet seems to be working for him now currently and we are just awaiting potential placement at an inpatient hospice facility to manage both pain, etc. Otherwise exam is pretty benign. Chest is clear. Then, appeared to be in severe distress, so likely will be discharged today or tomorrow. Job ID: [id number]
[2018-05-31 10:06] LABS: Anion Gap 12 mmol/L (10-20); BUN (Urea Nitrogen) 16 mg/dL (8.4-25.7); Calc. Creatinine Clearance 102 mL/min (70-130); Carbon Dioxide 32 mmol/L (23-31); Chloride 96 mmol/L (98-107); Estimated GFR-MDRD Greater than 90; Glucose 117 mg/dL (80-115); Potassium 4.3 mmol/L (3.5-5.1); Sodium 136 mmol/L (136-145)
--- NOTE | 2018-05-31 10:47 | PRG ---
DATE OF SERVICE: 05/30/2018 ADDENDUM: Please see note from Dr. Gonzalez, for which I agree. The patient was seen, evaluated, examined and discussed with the residents by bedside. The patient really has no change. Still just dealing with a lot of pain issues in his left chest and left upper quadrant. He is currently getting oxycodone twice daily and then Percocet for breakthrough pain. He is pretty much needing it consistently. Not taking anti-inflammatories and it sounds like they have helped him before, so probably, we can give a Toradol shot today. Lungs are fairly clear other than decreased breath sounds on that left side. We are waiting inpatient hospice acceptance and transfer. Job ID: [id number]
--- NOTE | 2018-05-31 11:08 | RAD ---
CHEST 2 VIEWS: HISTORY: Tachycardia requiring oxygen to maintain adequate saturation. COMPARISON: 05/23/2018. FINDINGS: Very extensive abnormal opacity in the left mid and lower lung zone with some pleural changes. Heart size is within normal limits. The right lung is clear. IMPRESSION: Very extensive but overall stable abnormal opacity changes in the left mid and lower lung zone with s ome pleural changes. This could represent a large parenchymal process including pneumonia or even a very large mass and may well have some significant pleural component. Consideration for a followup c hest CT scan for further assessment is suggested. No significant change from prior study. POS: BECCA
--- NOTE | 2018-05-31 11:52 | PRG ---
DATE OF SERVICE: 05/31/2018 SUBJECTIVE: Mr. Padilla is an unfortunate 62-year-old white man with metastatic lung cancer. He is refusing all treatment other than pain management. We are currently adjusting his pain medications. We are working along with case management for hospital placement for Mr. Padilla. This morning, he is awake and alert, in no acute distress and is quite talkative. Job ID: [id number]
[2018-05-31] MEDS: oxyCODONE ER 10 MG TAB PO SCH (19:17)
[2018-06-01] MEDS: oxyCODONE ER 20 MG TAB PO SCH ×2 (06:28→19:26)
[2018-06-01] MEDS: Ibuprofen 800 MG TAB PO SCH ×3 (06:29→21:54)
[2018-06-01] MEDS: oxyCODONE ER 10 MG TAB PO SCH ×2 (06:42→19:25)
--- NOTE | 2018-06-01 07:49 | PDOC.FM ---
- Subjective Subjective: NAEO. Patient reports significant improvement in pain control yesterday. Endorses constipation. Denies any cough, fever/chills. - Objective MAR Reviewed: Yes Vital Signs & Weight: Vital Signs (12 hours) Temp Pulse Resp BP Pulse Ox 06/01/18 06:47 88 18 94 L 05/31/18 20:00 95 05/31/18 19:56 97.5 F L 84 18 123/66 95 Weight Admit Weight 63.911 kg Weight 63.911 kg I&O: 05/31/18 06/01/18 06/02/18 06:59 06:59 06:59 Intake Total 910 1510 Output Total 4 Balance 906 1510 Result Diagrams: 05/31/18 09:37 05/31/18 09:37 Phys Exam - Physical Examination Constitutional: NAD HEENT: moist MMs, sclera anicteric Neck: supple, full ROM Respiratory: no wheezing, no rales, no rhonchi, clear to auscultation bilateral Cardiovascular: RRR, no significant murmur Gastrointestinal: no distention, positive bowel sounds Neurological: non-focal, moves all 4 limbs Psychiatric: normal affect, A&O x 3 Skin: no rash, normal turgor Dx/Plan (1) Intractable pain Code(s): R52 - PAIN, UNSPECIFIED Status: Acute (2) Metastatic lung cancer (metastasis from lung to other site) Code(s): C34.90 - MALIGNANT NEOPLASM OF UNSP PART OF UNSP BRONCHUS OR LUNG Status: Acute (3) Tobacco abuse Code(s): Z72.0 - TOBACCO USE Status: Acute - Plan Plan: 62YOM with a pmh of metastatic lung cancer admitted for intractable pain 2/2 to his cancer. Intractable Pain - 2/2 metastatic lung cancer. - Will continue oxycontin at 50mg BID since patient required only required 10mg of percocet yesterday. Will also continue GM gabapentin and ibuprofen as well for pain control. Will continue Percocet PRN to Q6H for breakthrough pain w/ increase in oxycontin dosing. - Palliative care on board. Metastatic Lung Cancer - Diagnosis confirmed via ER reports from [place] with a CTA of chest describing a LLL mass with liver mets. - Consulted Palliative care and patient is DNAR. OOH DNR signed with Hospice & in chart. - Patient denied by [facility] in [place]. Best option at this poitn is living with family and having hospice pay for pain control. PC working on getting a place for patient and brother to live. Constipation - No BMs for last several days as patient has been refusing GM miralax. Will order GM lactulose in addition to miralax and senokot today. HTN - Patient not on any antihypertensives at home. BP improved since achieving better pain control. Will continue to monitor. Homeless - Aware, consulted CM. Patient is pending placement. Tobacco Abuse - Smokes 3 cig per day. - Patient not interested in cessation. - Nicotine patch d/c as patient continues to go outside and smoke during hospital stay. Suspected COPD - Will continue Duoneb interval to Q8H as patient does not medically require them as he is not wheezing. Just believes they are helping him. - IS w/ RT ordered as well; however, patient refused. Code Status: DNAR DVT ppx: Lovenox GI PPx: pantoprazole
[2018-06-01] MEDS: Gabapentin 300 MG CAP PO SCH ×3 (08:55→21:07)
[2018-06-01] MEDS: Enoxaparin Sodium 40 MG/0.4 ML SYRINGE SC SCH (08:56)
[2018-06-01] MEDS: Polyethylene Glycol 3350 17 GM Packet PO SCH (08:57)
[2018-06-01] MEDS: Senokot S 8.6-50 MG TAB PO SCH ×2 (08:57→21:07)
[2018-06-01] MEDS: oxyCODONE/Acetaminophen 5 mg/325 mg Tablet PO PRN ×2 (09:01→14:53)
--- NOTE | 2018-06-01 12:48 | PRG ---
DATE OF SERVICE: 06/01/2018 SUBJECTIVE: Mr. Padilla this morning is his usual, talkative self. We are still awaiting placement. He does state that his pain is much better controlled. Job ID: [id number]
[2018-06-02] MEDS: oxyCODONE ER 10 MG TAB PO SCH ×2 (05:56→18:30)
[2018-06-02] MEDS: oxyCODONE ER 20 MG TAB PO SCH ×2 (05:57→18:29)
[2018-06-02] MEDS ORDERED: Bisacodyl 10 MG SUPP PR SCH (07:45)
[2018-06-02] MEDS: Gabapentin 300 MG CAP PO SCH ×3 (08:12→20:19)
[2018-06-02] MEDS: Senokot S 8.6-50 MG TAB PO SCH ×2 (08:12→20:18)
[2018-06-02] MEDS: oxyCODONE/Acetaminophen 5 mg/325 mg Tablet PO PRN (08:13)
[2018-06-02] MEDS: Enoxaparin Sodium 40 MG/0.4 ML SYRINGE SC SCH (08:13)
[2018-06-02] MEDS: Polyethylene Glycol 3350 17 GM Packet PO SCH (08:14)
[2018-06-02] MEDS: Ibuprofen 800 MG TAB PO SCH ×3 (08:17→22:05)
[2018-06-02] MEDS ORDERED: Bisacodyl 10 MG SUPP PR PRN (10:57)
--- NOTE | 2018-06-02 12:08 | PRG ---
DATE OF SERVICE: 06/02/2018 Mr. Padilla is resting quietly in bed, in no distress. As usual, very talkative self and is still obtaining good pain control. We are still awaiting placement. Job ID: [id number]
--- NOTE | 2018-06-03 05:42 | PDOC.FM ---
- Subjective Subjective: NAEO. Patient states his pain is still being well-controlled on current regimen. Says he finally had a BM yesterday. Is ready to leave the hospital today. - Objective MAR Reviewed: Yes Vital Signs & Weight: Vital Signs (12 hours) Temp Pulse Resp BP Pulse Ox 06/02/18 19:37 97.6 F 88 20 168/70 H 93 L 06/02/18 19:30 93 L 06/02/18 19:08 100 16 96 Weight Admit Weight 63.911 kg Weight 63.911 kg I&O: 06/01/18 06/02/18 06/03/18 06:59 06:59 06:59 Intake Total 1510 800 Balance 1510 800 Result Diagrams: 05/31/18 09:37 05/31/18 09:37 Phys Exam - Physical Examination Constitutional: NAD (end expiratory wheezing in B/L upper lobes) HEENT: moist MMs, sclera anicteric Neck: supple, full ROM Respiratory: no rales, no rhonchi, wheezing present Cardiovascular: RRR, no significant murmur Gastrointestinal: no distention, positive bowel sounds Musculoskeletal: no edema Neurological: non-focal, moves all 4 limbs Psychiatric: normal affect, A&O x 3 Skin: no rash, normal turgor Dx/Plan (1) Intractable pain Code(s): R52 - PAIN, UNSPECIFIED Status: Acute (2) Metastatic lung cancer (metastasis from lung to other site) Code(s): C34.90 - MALIGNANT NEOPLASM OF UNSP PART OF UNSP BRONCHUS OR LUNG Status: Acute (3) Tobacco abuse Code(s): Z72.0 - TOBACCO USE Status: Acute - Plan Plan: 62YOM with a pmh of metastatic lung cancer admitted for intractable pain 2/2 to his cancer. Intractable Pain, improved - 2/2 metastatic lung cancer. - Will continue oxycontin at 50mg BID since patient required only required 10mg of percocet yesterday. Will also continue GM gabapentin and ibuprofen as well for pain control. Will continue Percocet PRN to Q6H for breakthrough pain w/ increase in oxycontin dosing. - Palliative care on board. Metastatic Lung Cancer - Diagnosis confirmed via ER reports from [place] with a CTA of chest describing a LLL mass with liver mets. - Consulted Palliative care and patient is DNAR. OOH DNR signed with Hospice & in chart. - Patient denied by [facility] in [place] but as accepted by [facility] yesterday afternoon. Going there this morning. Paperwork signed. Constipation - BM yesterday. Will continue GM lactuloase, miralax, and senokot QD while on narcotics. HTN - Patient not on any antihypertensives at home. BP improved since achieving better pain control. Will continue to monitor. Homeless - Aware, consulted CM. Patient is pending placement. Tobacco Abuse - Smokes 3 cig per day. - Patient not interested in cessation. - Nicotine patch d/c as patient continues to go outside and smoke during hospital stay. Suspected COPD - Will continue Duoneb interval to Q8H as patient does not medically require them as he is not wheezing. Just believes they are helping him. - IS w/ RT ordered as well; however, patient refused. Code Status: DNAR DVT ppx: Lovenox GI PPx: pantoprazole
[2018-06-03] MEDS ORDERED: Magnesium Citrate 300 ML BOT PO SCH (05:45)
[2018-06-03] MEDS: Ibuprofen 800 MG TAB PO SCH ×2 (05:48→15:55)
[2018-06-03] MEDS: oxyCODONE ER 10 MG TAB PO SCH (05:49)
[2018-06-03] MEDS: oxyCODONE ER 20 MG TAB PO SCH (05:49)
--- NOTE | 2018-06-03 07:05 | PDOC.FM ---
- Subjective Subjective: Patient reports his pain is still well-controlled. Says he still has not had a BM. Otherwise, no complaints. - Objective MAR Reviewed: Yes Vital Signs & Weight: Vital Signs (12 hours) Temp Pulse Resp BP Pulse Ox 06/02/18 19:37 97.6 F 88 20 168/70 H 93 L 06/02/18 19:30 93 L 06/02/18 19:08 100 16 96 Weight Admit Weight 63.911 kg Weight 63.911 kg I&O: 06/02/18 06/03/18 06/04/18 06:59 06:59 06:59 Intake Total 1520 Balance 1520 Result Diagrams: 05/31/18 09:37 05/31/18 09:37 Phys Exam - Physical Examination Constitutional: NAD HEENT: PERRLA, moist MMs Neck: supple, full ROM Respiratory: wheezing present Cardiovascular: RRR, no significant murmur Gastrointestinal: no distention, positive bowel sounds Musculoskeletal: no edema, pulses present Neurological: non-focal, moves all 4 limbs Psychiatric: normal affect, A&O x 3 Skin: no rash, normal turgor Dx/Plan (1) Intractable pain Code(s): R52 - PAIN, UNSPECIFIED Status: Acute (2) Metastatic lung cancer (metastasis from lung to other site) Code(s): C34.90 - MALIGNANT NEOPLASM OF UNSP PART OF UNSP BRONCHUS OR LUNG Status: Acute (3) Tobacco abuse Code(s): Z72.0 - TOBACCO USE Status: Acute - Plan Plan: 62YOM with a pmh of metastatic lung cancer admitted for intractable pain 2/2 to his cancer. Intractable Pain - 2/2 metastatic lung cancer. - Will continue oxycontin at 50mg BID since patient required only required 10mg of percocet yesterday. Will also continue GM gabapentin and ibuprofen as well for pain control. Will continue Percocet PRN to Q6H for breakthrough pain w/ increase in oxycontin dosing. - Palliative care on board. Metastatic Lung Cancer - Diagnosis confirmed via ER reports from [place] with a CTA of chest describing a LLL mass with liver mets. - Consulted Palliative care and patient is DNAR. OOH DNR signed with Hospice & in chart. - Patient denied by [facility] in [place]. Referrals placed to other facilities in [place], waiting to hear an acceptance. Constipation - No BMs for last several days as patient has been refusing GM miralax. Will order GM lactulose in addition to miralax and senokot today. Will also order a suppository. HTN - Patient not on any antihypertensives at home. BP improved since achieving better pain control. Will continue to monitor. Homeless - Aware, consulted CM. Patient is pending placement. Tobacco Abuse - Smokes 3 cig per day. - Patient not interested in cessation. - Nicotine patch d/c as patient continues to go outside and smoke during hospital stay. Suspected COPD - Will continue Duoneb interval to Q8H as patient does not medically require them as he is not wheezing. Just believes they are helping him. - IS w/ RT ordered as well; however, patient refused. Code Status: DNAR DVT ppx: Lovenox GI PPx: pantoprazole
[2018-06-03] MEDS: Enoxaparin Sodium 40 MG/0.4 ML SYRINGE SC SCH (08:34)
[2018-06-03] MEDS: oxyCODONE/Acetaminophen 5 mg/325 mg Tablet PO PRN ×2 (08:34→13:05)
[2018-06-03] MEDS: Gabapentin 300 MG CAP PO SCH ×2 (08:35→15:55)
[2018-06-03] MEDS: Senokot S 8.6-50 MG TAB PO SCH (08:35)
[2018-06-03] MEDS: Polyethylene Glycol 3350 17 GM Packet PO SCH (08:35)
[2018-06-03 08:44] VITALS: BP 131/65; TEMP 97.8
--- NOTE | 2018-06-03 11:44 | PRG ---
DATE OF SERVICE: 06/03/2018 Mr. Padilla is sitting quietly in bed, in no distress. Placement is made and he will be discharged today. Job ID: [id number]
== END 2018-06-03 17:15 | disposition hospice, inpatient (51) | DRG 948 ==
LOC: ERS 17:54 → 2SW 21:57 → OBSVTOIN 21:57 → ONC 05-25 18:13
PROVIDERS: ADMIT Family Medicine; ATTEND Family Medicine
DX: G89.3 Neoplasm related pain (acute) (chronic) (principal); C34.90 Malignant neoplasm of unspecified part of unspecified bronchus or lung; C78.7 Secondary malignant neoplasm of liver and intrahepatic bile duct; F17.210 Nicotine dependence, cigarettes, uncomplicated; I10 Essential (primary) hypertension; K59.00 Constipation, unspecified; J44.9 Chronic obstructive pulmonary disease, unspecified; Z59.0 Homelessness; Z82.49 Family history of ischemic heart disease and other diseases of the circulatory system
CPT/HCPCS: 36415; 71046; 80048; 80053; 85025; 94640; 96361; 96374; 96375; 96376; J1650; J1885; J2270; J2405; J7620